=== PATIENT | female | born 1990 | race Caucasian/White ===

== ENCOUNTER → 2017-12-20 | Day surgery (SDC) | payer BC ==
[2017-12-14 16:02] VITALS: BMI 40.2
[~2017-12-20] MED LIST: Acetaminophen-Codeine 300-30mg TAB PO PRN; DEXAMETHASONE SOD PHOSPHATE 10 MG/ML 1 ML VIAL IV ONE; IBUPROFEN 600 MG TAB PO PRN; KETOROLAC 30 MG/ML 1 ML VIAL IVP PRN; KETOROLAC 30 MG/ML 1 ML VIAL ONE; LACTATED RINGERS 1,000 ML IV ONE; LACTATED RINGERS 1,000 ML IV SCH; LIDOCAINE 1% 20 ML VIAL (10MG/ML) FOR IV START INTRADERMA ONE; LIDOCAINE 1% INJ 10MG/ML (20 ML MDV) ONE; METOCLOPRAMIDE 5 MG/ML 2 ML VIAL IVP PRN; MIDAZOLAM 2 MG/2 ML VIAL IV PRN; MIDAZOLAM 2 MG/2 ML VIAL ONE; ONDANSETRON 4 MG/2 ML VIAL IVP PRN; ONDANSETRON ODT 4 MG TAB PO ONE; PROPOFOL 10 MG/ML 20 ML VIAL IV ONE; Pre Op ABX Message 1 EACH MISC MISCELLANE ONE; SCOPOLAMINE 1.5MG/72HR PATCH TRANSDERM ONE; SIMETHICONE 80 MG CHEWABLE PO PRN; SUCCINYLCHOLINE CHLORIDE 100 MG/5 ML SYR IV ONE; diphenhydrAMINE 50 MG/ML 1 ML VIAL IVP PRN; fentaNYL (PF) 50 MCG/ML 2 ML AMP IV PRN; fentaNYL (PF) 50 MCG/ML 2 ML AMP ONE
[2017-12-20 10:40] LABS: Basophils % (A) 0 %; Eosinophils # (A) 0.2 k/uL (0-0.7); Eosinophils % (A) 3 %; HCT 44.8 % (34.0-46.0); HGB 14.9 gm/dL (11.4-16.0); Lymphocytes # (A) 1.8 k/uL (1.0-4.8); Lymphocytes % (A) 22 %; MCH 30.4 pg (25.0-35.0); MCHC 33.3 g/dL (31.0-37.0); MCV 91.5 fL (80.0-100.0); Mean Platelet Volume 9.6; Monocytes # (A) 0.4 k/uL (0-1.0); Monocytes % (A) 5 %; Neutrophils # (A) 5.6 k/uL (1.3-7.7); Neutrophils % (A) 69 %; Platelet Count 186 k/uL (150-450); RDW 12.5 % (11.5-15.5); WBC 8.1 k/uL (3.8-10.6)
--- NOTE | 2017-12-20 11:43 | P.OP ---
Date of Procedure: 12/20/17 Preoperative Diagnosis: #1. Incomplete Postoperative Diagnosis: Same Procedure(s) Performed: #1. Dilation and aspiration curettage Anesthesia: KELLI Surgeon: Dillon Santos Estimated Blood Loss (ml): 5 IV fluids (ml): 450 Urine output (ml): 30 Pathology: other (Endometrial contents) Condition: stable Disposition: PACU Operative Findings: Preoperatively, the patient had reported that she has had minimal spotting over the last 2 days with her most recent known beta hCG at 19 approximately 1 week ago. Pelvic examination demonstrated a roughly 5 week slightly anteverted mobile normal shaped uterus with no adnexa bilaterally. The cervix was closed. Intraoperatively, the uterus sounded to 8 cm. A very small amount of tissue was noticed passing through the tubing on the first pass with the aspiration curet. The typical gritty texture was encountered with a small sharp curette. Description of Procedure: The patient was prepped and draped in usual fashion after general endotracheal anesthesia was administered by the anesthesiologist. A weighted speculum was placed and the bladder drained of approximately 30 mL of clear sera urine. The anterior lip of the cervix was grasped with a single-tooth tenaculum and uterus sounded to 8 cm as noted above. Serial dilation was carried out to admit a #8 curved aspiration curet. This was placed to the fundus of the uterus and suction applied. After adequate suction and been built, thorough circumferential curettage was carried out from the fundus to the cervix with a small amount of tissue seen passing on the first pass. The next best demonstrated no further tissue. The aspiration curet was replaced with a small sharp curette which was used to thoroughly and circumferentially curet in vitro cavity with no further tissue noted and the typical gritty texture encountered. One last pass was made with the aspiration curet remove anything dislodged by the sharp curet. All instrumentation was then removed. There was no ongoing bleeding from the tenaculum site or cervix. Estimated blood loss for the entire case was less than 5 mL. There were no complications. All sponge, instrument, and needle counts were correct.
[2017-12-20 11:53] VITALS: TEMP 97.6
[2017-12-20 13:16] VITALS: BP 120/77; PULSE 74; RESP 15
== END | disposition home or self-care (01) ==
LOC: OR 09:56
PROVIDERS: ATTEND Obstetrics & Gynecology
DX: O03.4 Incomplete spontaneous abortion without complication (principal); K21.9 Gastro-esophageal reflux disease without esophagitis; F17.210 Nicotine dependence, cigarettes, uncomplicated; Z88.2 Allergy status to sulfonamides
CPT/HCPCS: 86900; 86901; 88305; 85025; 86850; 59812; J2250; J2001; J3010; J1885; J0330; J2704

== ENCOUNTER → 2018-02-21 | Outpatient (CLI) | payer BC ==
--- NOTE | 2018-02-22 07:46 | XR ---
"Right ankle and right foot HISTORY: Pain 3 views of the right ankle and 3 views of the right foot are submitted. Soft tissue swelling is noted at the level the distal fifth metatarsal, there is cortical irregularit y suggestive of possible fracture, age indeterminate. No dislocation. Alignment is maintained, bone m ineralization is normal. Soft tissue swelling also suspected at the ankle joint. IMPRESSION: Correlate for trauma to the distal fifth metatarsal, findings suggest fracture. Soft tiss ue swelling. A Yellow level critical message alert has been initiated for Mi Hicks via the [employer] | Critical Results System on 02/22/2018 7:44 AM. This message alert has been sent to Taylor Hicks via the preferences provided by the clinician for the receipt of Radiology Cr itical Findings. Message ID [id number]."
== END | disposition home or self-care (01) ==
LOC: RADXRMAIN 16:48
PROVIDERS: ATTEND Nurse Practitioner
DX: M79.89 Other specified soft tissue disorders (principal)